=== PATIENT | male | born 1970 | race Caucasian/White ===

== ENCOUNTER 2018-04-20 10:03 | Emergency (ER) | payer BC ==
[~2018-04-20] VITALS: Ht 185.4 cm; Wt 77.1 kg
--- NOTE | ~2018-04-20 | EKG ---
[place], [place] ELECTROCARDIOGRAM REPORT NAME: NATALIE SCHWARTZ UNIT #: [id number] ROOM: DOCTOR: EPIPHANY DRAFT REPORT BIRTHDATE: [birth year] [facility] Test Date: 2018-04-20 Test Time: 10:35:20 Pat Name: NATALIE SCHWARTZ Department: Room: Gender: Sales Clerk Supervisor: : [id number] Requested By: JV SANFORD Order Number: [id number] Reading MD: Naif Rodriguez MD Measurements Intervals [place] Rate: 85 P: 70 LA: 160 QRS: 92 QRSD: 82 T: 19 QT: 345 QTc: 411 Interpretive Statements Sinus rhythm Probable left atrial enlargement Borderline right axis deviation No previous ECG available for comparison Electronically Signed On 04-20-2018 17:22:49 PST by Naif Rodriguez MD CM:EKGRPT:ELECTROCARDIOGRAM REPORT [id number] 1722 JV SANFORD EPIPHANY DRAFT REPORT JV SANFORD
[2018-04-20 10:38] LABS: BASO % 0.2 % (0.0-1.0); EOS # 0.1 10*3/uL (0.0-0.4); EOS % 0.9 % (1.0-4.0); HEMATOCRIT 41.3 % (42.0-52.0); LYMPH # 1.4 10*3/uL (1.3-4.4); LYMPH % 10.8 % (27.0-41.0); MEAN CELL VOLUME 95.8 fl (80.0-94.0); MEAN CORPUSCULAR HGB 32.5 pg (27.0-31.0); MEAN CORPUSCULAR HGB CONC 33.9 g/dl (33.0-37.0); MONO # 1.2 10*3/uL (0.1-1.0); MONO % 9.4 % (3.0-9.0); NEUT % 78.2 % (47.0-73.0); PLATELET COUNT AUTOMATED 312 10*3/uL (130-400); RED BLOOD COUNT 4.31 10*6/uL (4.50-5.90); RED CELL DISTRI WIDTH 11.4 % (0-14.5); WHITE BLOOD COUNT 12.8 10*3/uL (4.8-10.8)
[2018-04-20 10:56] LABS: ALBUMIN 3.3 gm/dl (3.1-4.5); ALKALINE PHOSPHATASE 57 U/L (45-117); BUN 15 mg/dl (7-24); CHLORIDE 106 mmol/L (98-107); CREATININE 0.85 mg/dL (0.70-1.30); SGOT/AST 19 IU/L (3-35); SGPT/ALT 28 U/L (12-78); SODIUM 141 mmol/L (136-145); TOTAL PROTEIN 7.2 gm/dL (6.4-8.2)
[2018-04-20 10:59] LABS: TROPONIN I < 0.015 ng/ml (<0.045)
[2018-04-20] MEDS ORDERED: LEVOFLOXACIN500 MG PO (14:45)
[2018-04-20] MEDS ORDERED: PROAIR HFA8.5 GM INH (14:45)
== END 2018-04-20 14:50 | disposition home or self-care (01) ==
LOC: ED 10:03
PROVIDERS: Nurse Practitioner Family
DX: J18.1 Lobar pneumonia, unspecified organism (principal); F17.210 Nicotine dependence, cigarettes, uncomplicated